=== PATIENT | male | born 1945 | race Caucasian/White ===

== ENCOUNTER 2016-05-12 20:18 | Emergency (ER) | payer OTHER ==
[~2016-05-12] VITALS: Ht 182.9 cm; Wt 130.0 kg
[2016-05-12 20:21] VITALS: BP 127/71; PULSE 83; RESP 20; TEMP 98.2; O2SAT 95
[2016-05-12] MEDS ORDERED: SODIUM CHLOR 0.9% 1000 ML INJ 1,000 ML IV ONE (20:33)
[2016-05-12] MEDS ORDERED: SODIUM CHLORIDE 0.9% FLUSH 5 ML FLUSH IVF PRN (20:45)
[2016-05-12] MEDS ORDERED: TETANUS/DIPHTHERIA TOXOID ADULT 0.5 ML VIAL IM ONE (20:45)
--- NOTE | 2016-05-12 21:18 | RADRPT ---
EXAM DATE/TIME: 05/12/2016 20:56 [facility] COMPARISON: No previous studies available for comparison. INDICATIONS : Palpitations. MEDICAL HISTORY : None. SURGICAL HISTORY : None. ENCOUNTER: Initial ACUITY: 1 day PAIN SCORE: 0/10 LOCATION: Bilateral chest FINDINGS: The lungs are clear.The heart is minimally enlarged. The pulmonary vascularity is normal. There is no evidence for infiltrate or failure. The portion of the bony skeleton visualized is unremarkable. CONCLUSION: Compensated cardiomegaly otherwise negative. Davey French MD FACR on May 12, 2016 at 21:16 Board Certified Radiologist. This report was verified electronically.
--- NOTE | 2016-05-12 21:28 | RADRPT ---
EXAM DATE/TIME: 05/12/2016 21:18 [facility] COMPARISON: No previous studies available for comparison. INDICATIONS : Fall with head trauma. RADIATION DOSE: 46.67 CTDIvol (mGy) MEDICAL HISTORY : Hypertension. Hypercholesterolemia. Arthritis. SURGICAL HISTORY : None. ENCOUNTER: Initial ACUITY: 1 day PAIN SCALE: 5/10 LOCATION: cranial TECHNIQUE: Multiple contiguous axial images were obtained of the head. Using automated exposure control and adjustment of the mA and/or kV according to patient size, radiation dose was kept as low as reasonably achievable to obtain optimal diagnostic quality images. FINDINGS: CEREBRUM: The ventricles are normal for age. No evidence of midline shift, mass lesion, hemorrha ge or acute infarction. No extra-axial fluid collections are seen. POSTERIOR FOSSA: The cerebellum and brainstem are intact. The 4th ventricle is midline. The cer ebellopontine angle is unremarkable. EXTRACRANIAL: The visualized portion of the orbits is intact. SKULL: The calvaria is intact. No evidence of skull fracture. CONCLUSION: Negative for acute process. Davey French MD FACR on May 12, 2016 at 21:26 Board Certified Radiologist. This report was verified electronically.
[2016-05-12 21:37] LABS: AUTOMATED NEUTROPHIL # 3.5 TH/MM3 (1.8-7.7); BASOPHIL % 0.5 % (0.0-2.0); EOSINOPHIL # 0.2 TH/MM3 (0-0.4); EOSINOPHIL % 2.5 % (0.0-4.0); HEMATOCRIT 39.6 % (39.0-51.0); HEMO FLAGS DIFF FINAL; LYMPH % 36.9 % (9.0-44.0); LYMPHOCYTE # 2.8 TH/MM3 (1.0-4.8); MEAN CORPUSCULAR HEMOGLOBIN 31.6 PG (27.0-34.0); MEAN CORPUSCULAR HGB CONC 34.4 % (32.0-36.0); MONO % 13.9 % (0.0-8.0); NEUT % 46.2 % (16.0-70.0); PLATELET COUNT 211 TH/MM3 (150-450); RED CELL DISTRIBUTION WIDTH 13.3 % (11.6-17.2); WHITE BLOOD COUNT 7.5 TH/MM3 (4.0-11.0)
[2016-05-12 21:50] LABS: APTT (PATIENT) 28.3 SEC (24.3-30.1)
--- NOTE | 2016-05-12 21:57 | RADRPT ---
EXAM DATE/TIME: 05/12/2016 21:18 [facility] COMPARISON: No previous studies available for comparison. INDICATIONS : Fall with head trauma. RADIATION DOSE: 27.05 CTDIvol (mGy) MEDICAL HISTORY : Hypertension. Hypercholesterolemia. Arthritis. SURGICAL HISTORY : Knee surgeries. ENCOUNTER: Initial ACUITY: 1 day PAIN SCALE: 6/10 LOCATION: Neck TECHNIQUE: Volumetric scanning of the cervical spine was performed. Multiplanar reconstructions i n the sagittal, coronal and oblique axial planes were performed. Using automated exposure control a nd adjustment of the mA and/or kV according to patient size, radiation dose was kept as low as reason ably achievable to obtain optimal diagnostic quality images. FINDINGS: There is minimal reversal of the normal cervical lordosis. Mild degenerative changes a re seen at C1 and C2. C2-C3: The bony spinal canal is normal in size. No evidence of disc bulge or herniation. The neura l foramina are bilaterally patent. C3-C4: Mild uncinate ridging is present with minimal left-sided neural foraminal encroachment. C4-C5: Moderate uncinate ridging is present with moderate left-sided neural foraminal encroachment. C5-C6: Mild uncinate ridging is present with minimal bilateral neural foraminal encroachment. C6-C7: Mild uncinate ridging is present with moderate bilateral neural foraminal encroachment. C7-T1: The bony spinal canal is normal in size. No evidence of disc bulge or herniation. The neura l foramina are bilaterally patent. CONCLUSION: Degenerative changes without fracture. Davey French MD FACR on May 12, 2016 at 21:53 Board Certified Radiologist. This report was verified electronically.
[2016-05-12 21:58] LABS: ALKALINE PHOSPHATASE 103 U/L (45-117); ALT (GPT) 71 U/L (12-78); ANION GAP 12 MEQ/L (5-15); AST (GOT) 68 U/L (15-37); BICARBONATE 27.5 MEQ/L (21.0-32.0); BLOOD UREA NITROGEN 23 MG/DL (7-18); CHLORIDE 99 MEQ/L (98-107); CREATINE KINASE 184 U/L (39-308); GLOMERULAR FILTRATION RATE 67 ML/MIN (>89); SODIUM (NA) 138 MEQ/L (136-145); TOTAL BILIRUBIN ADULT 0.4 MG/DL (0.2-1.0)
[2016-05-12 22:05] LABS: POTASSIUM 2.7 MEQ/L (3.5-5.1)
[2016-05-12 22:10] VITALS: BP 153/82; PULSE 79; RESP 20; O2SAT 96
[2016-05-12 22:22] LABS: CKMB 2.5 NG/ML (0.5-3.6)
--- NOTE | 2016-05-12 23:43 | PD ---
HPI Chief Complaint: Fall Time Seen by Provider: 20:24 Travel History International Travel<30 days: No Contact w/Intl Traveler<30days: No Traveled to known affect area: No History of Present Illness HPI Patient 70-year-old male presents emergency department after a trip and fall. Patient states he has been drinking heavily and decided he wanted to go to the dog track and that on the dogs. He got behind the wheel of the car and drove to the local dog track found the dogs were not running the day and when walking back to his car tripped over a curb and fell forward onto his face. Patient denies any loss of consciousness. Admits to fairly heavy alcohol ingestion tonight. Complains of an abrasion to his chin otherwise no complaints. Denies any chest pain shortness of breath leading up to or following the event. He states this is not happened to him before he just had too much drink. Pleasant on arrival. [facility] Past Medical History Anxiety: Yes Depression: Yes High Cholesterol: Yes Diminished Hearing: No Hypertension: Yes Medical other: Yes (ABD hernia) Musculoskeletal: Yes (arthitis) Tetanus Vaccination: Unknown Influenza Vaccination: Yes ?: Not Past Surgical History Other Surgery: Yes (5 sx on right knee) Social History Alcohol Use: Yes ("couple drinks tonight") Tobacco Use: Yes Substance Use: No Allergies-Medications (Allergen,Severity, Reaction): Coded Allergies: No Known Allergies (Verified Allergy, Mild, 10/16/03) Review of Systems Except as stated in HPI: all other systems reviewed are Neg Physical Exam Narrative GENERAL: [Well-developed well-nourished quite pleasant in no apparent distress. SKIN: Warm and dry. HEAD: No raccoons eyes no gross signs, there is an abrasion to the chin underneath the lower lip. Minimal bleeding. No lacerations seen.. Normocephalic. EYES: Pupils equal and round. No scleral icterus. No injection or drainage. ENT: No nasal bleeding or discharge. Mucous membranes pink and moist. NECK: Trachea midline. No JVD. CARDIOVASCULAR: Regular rate and rhythm. No murmur appreciated. RESPIRATORY: No accessory muscle use. Clear to auscultation. Breath sounds equal bilaterally. GASTROINTESTINAL: Abdomen soft, non-tender, nondistended. Hepatic and splenic margins not palpable. MUSCULOSKELETAL: No obvious deformities. No clubbing. No cyanosis. No edema. NEUROLOGICAL: Awake and alert. No obvious cranial nerve deficits. Motor grossly within normal limits. Normal speech. PSYCHIATRIC: Appropriate mood and affect; insight and judgment normal. Data Data Last Documented VS Vital Signs Date Time Temp Pulse Resp B/P Pulse Ox O2 Delivery O2 Flow Rate FiO2 05/12/16 23:44 82 18 148/78 98 05/12/16 22:10 Room Air 05/12/16 20:21 98.2 Orders Complete Blood Count With Diff (05/12/16 20:33) Comprehensive Metabolic Panel (05/12/16 20:33) Ckmb (Isoenzyme) Profile (05/12/16 20:33) Troponin I (05/12/16 20:33) Act Partial Throm Time (Ptt) (05/12/16 20:33) Prothrombin Time / Inr (Pt) (05/12/16 20:33) Chest, Single Ap (05/12/16 20:33) Ct Brain W/O Iv Contrast(Rout) (05/12/16 20:33) Ct Cerv Spine W/O Contrast (05/12/16 20:33) Ecg Monitoring (05/12/16 20:33) Iv Access Insert/Monitor (05/12/16 20:33) Oximetry (05/12/16 20:33) Sodium Chloride 0.9% Flush (Ns Flush) (05/12/16 20:45) Sodium Chlor 0.9% 1000 Ml Inj (Ns 1000 M (05/12/16 20:33) Alcohol (Ethanol) (05/12/16 20:45) Tetanus/Diphtheria Tox Adult (Tetanus/Di (05/12/16 20:45) Electrocardiogram (05/12/16 20:29) CKMB (05/12/16 20:40) CKMB% (05/12/16 20:40) Labs Laboratory Tests Test 05/12/16 05/12/16 20:33 20:40 Ethyl Alcohol Level 211 MG/DL White Blood Count 7.5 TH/MM3 Red Blood Count 4.30 MIL/MM3 Hemoglobin 13.6 GM/DL Hematocrit 39.6 % Mean Corpuscular Volume 92.0 FL Mean Corpuscular Hemoglobin 31.6 PG Mean Corpuscular Hemoglobin 34.4 % Concent Red Cell Distribution Width 13.3 % Platelet Count 211 TH/MM3 Mean Platelet Volume 7.8 FL Neutrophils (%) (Auto) 46.2 % Lymphocytes (%) (Auto) 36.9 % Monocytes (%) (Auto) 13.9 % Eosinophils (%) (Auto) 2.5 % Basophils (%) (Auto) 0.5 % Neutrophils # (Auto) 3.5 TH/MM3 Lymphocytes # (Auto) 2.8 TH/MM3 Monocytes # (Auto) 1.0 TH/MM3 Eosinophils # (Auto) 0.2 TH/MM3 Basophils # (Auto) 0.0 TH/MM3 CBC Comment DIFF FINAL Differential Comment Prothrombin Time 11.0 SEC Prothromb Time International 1.0 RATIO Ratio Activated Partial 28.3 SEC Thromboplast Time Sodium Level 138 MEQ/L Potassium Level 2.7 MEQ/L Chloride Level 99 MEQ/L Carbon Dioxide Level 27.5 MEQ/L Anion Gap 12 MEQ/L Blood Urea Nitrogen 23 MG/DL Creatinine 1.09 MG/DL Estimat Glomerular Filtration 67 ML/MIN Rate Random Glucose 105 MG/DL Calcium Level 8.4 MG/DL Total Bilirubin 0.4 MG/DL Aspartate Amino Transf 68 U/L (AST/SGOT) Alanine Aminotransferase 71 U/L (ALT/SGPT) Alkaline Phosphatase 103 U/L Total Creatine Kinase 184 U/L Creatine Kinase MB 2.5 NG/ML Troponin I LESS THAN 0.02 NG/ML Total Protein 7.5 GM/DL Albumin 3.5 GM/DL MDM Medical Decision Making Medical Screen Exam Complete: Yes Emergency Medical Condition: Yes Differential Diagnosis Abrasion, closed head injury, syncope, C-spine fracture. Narrative Course Patient 70-year-old male intoxicated presents to the emergency department today after a trip and fall. Alcohol level is 211, moderate hypokalemia at 2.9. He is not on any blood thinners, coags within normal limits. He is pleasant on arrival follows all commands. CT had C-spine and chest x-ray negative. EKG shows no acute infarct. Patient was assessed in the emergency department. Appears well. He requests to go home and states he can call a ride to get there. Patient is called a friend who was arrived in the emergency department clinically sober and is agreed to take care of the patient drive him home. Discussed with the patient safety while drinking and that it is dangerous and also illegal to be driving intoxicated. He verbalized understanding. Discussed with him return ED criteria. Diagnosis Primary Impression: Closed head injury Qualified Code: S09.90XA - Closed head injury, initial encounter Additional Impression: Alcoholism Disposition: 01 DISCHARGE HOME Condition: Stable Waldemar Hairston MD May 12, 2016 23:43
[2016-05-12 23:44] VITALS: BP 148/78
--- NOTE | 2016-05-13 17:56 | EKG ---
Date Performed: 05/12/2016 Time Performed: 20:29:20 PTAGE: 70 years EKG: Sinus rhythm INTRAVENTRICULAR CONDUCTION DELAY POSSIBLE SEPTAL MYOCARDIAL INFARCTION ABNORMAL ECG NO PREVIOUS TRACING DOCTOR: Nichelle Rosas Interpretating Date/Time 05/13/2016 17:55:50
== END 2016-05-12 23:47 | disposition home or self-care (01) ==
LOC: NEPE 20:18
DX: S00.81XA Abrasion of other part of head, initial encounter (principal); R00.2 Palpitations; I10 Essential (primary) hypertension; R94.31 Abnormal electrocardiogram [ECG] [EKG]; F10.229 Alcohol dependence with intoxication, unspecified; E78.00 Pure hypercholesterolemia, unspecified; W01.198A Fall on same level from slipping, tripping and stumbling with subsequent striking against other object, initial encounter; Y93.01 Activity, walking, marching and hiking; Y92.838 Other recreation area as the place of occurrence of the external cause; Y90.7 Blood alcohol level of 200-239 mg/100 ml; Z23 Encounter for immunization; Z72.0 Tobacco use
CPT/HCPCS: 70450; 71010; 72125; 80053; 80320; 82550; 82552; 84484; 85025; 85610; 85730; 90471; 90714; 93005; 96360; 96361; 99284; J7030